=== PATIENT | male | born 1980 | race Caucasian/White ===

== ENCOUNTER 2016-12-17 14:59 | Emergency (ER) | payer SELFPAY ==
[~2016-12-17] VITALS: Ht 182.9 cm; Wt 88.3 kg
[~2016-12-17 14:59] MED LIST: AMOX500T PO; DICL75 PO; HYDR-3533 PO; PROVENTIL HFA INH; ROBA750T3 PO; Z.0.NO CURRENT MEDS
[2016-12-17 15:10] VITALS: BP 129/83; PULSE 88; RESP 16; TEMP 97.5; O2SAT 100
--- NOTE | 2016-12-17 15:20 | PD ---
HPI Chief Complaint: Musculoskeletal Complaint Time Seen by Provider: 15:20 Travel History International Travel<30 days: No Contact w/Intl Traveler<30days: No Traveled to known affect area: No History of Present Illness HPI 36-year-old male presents to the emergency Department with 2 complaints. Patient maintained complaining of his bilateral hand and wrist pain , swelling, and stiffness. 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 Patient was afraid to go to work today as this waste duster was just not up to snuff. He denies numbness or tingling. He denies upper arm or neck pain. There is no sign of cellulitis. She also has complained concerned about a cough that he has had for the past week, as he has HIV. Patient states no fever, chills, has chest congestion and productive cough of sputum. He denies upper respiratory symptoms such as headache, sore throat, ear pain, or difficulty swallowing. Has no sinus headache or postnasal drip. Patient is taking his current medications appropriately. Patient is allergic to Darvocet and Zithromax. PFSH Past Medical History Cardiovascular Problems: Yes (ENLARGED HEART) Diminished Hearing: No Past Surgical History Other Surgery: Yes (INGUINAL HERNIA REPAIR) Social History Alcohol Use: Yes (DRINKS ON ) Tobacco Use: Yes (1/2) Substance Use: No Allergies-Medications (Allergen,Severity, Reaction): Coded Allergies: Darvocet-N 100 (Verified Allergy, Mild, MAKES ME SICK, 12/17/16) Zithromax (Verified Allergy, Mild, DOES ALL KINDS OF THINGS TO ME, 12/17/16 ) Reported Meds & Prescriptions Reported Meds & Active Scripts Active Reported Hydrochlorothiazide 25 Mg Tab 25 Mg PO DAILY Amlodipine (Amlodipine Besylate) 10 Mg Tab 10 Mg PO DAILY Review of Systems Except as stated in HPI: all other systems reviewed are Neg General / Constitutional: No: Fever Eyes: No: Visual changes HENT: No: Headaches Cardiovascular: No: Chest Pain or Discomfort Respiratory: Positive: Cough, No: Shortness of Breath, Wheezing, Sneezing, Orthopnea, Hemoptysis Gastrointestinal: No: Abdominal Pain Genitourinary: No: Dysuria Musculoskeletal: Positive: Myalgias, Limited ROM, Pain, No: Arthralgias Skin: No Rash Neurologic: No: Weakness Psychiatric: No: Depression Endocrine: No: Polydipsia Hematologic/Lymphatic: No: Easy Bruising Physical Exam Narrative GENERAL: Patient appears distress. SKIN: Warm and dry. Normal color. Normal turgor. Multiple old abrasions to both hands without current signs of cellulitis or abscess. HEAD: Atraumatic. Normocephalic. EYES: Pupils equal and round. No scleral icterus. No injection or drainage. ENT: No nasal bleeding or discharge. Mucous membranes pink and moist. No sinus tenderness. Pharynx is clear without significant erythema or postnasal drip. TMs are clear bilaterally. NECK: Trachea midline. No bony tenderness or step-off. Supple nontender. CARDIOVASCULAR: Regular rate and rhythm. RESPIRATORY: No accessory muscle use. Coarse to auscultation. No significant wheezes, rales, or rhonchi. Breath sounds equal bilaterally. GASTROINTESTINAL: Abdomen soft, non-tender, nondistended. Hepatic and splenic margins not palpable. MUSCULOSKELETAL: Extremities without clubbing, cyanosis, or edema. No obvious deformities. Patient has generalized tenderness and stiffness of both hands with decreased waste duster strength secondary to pain bilaterally. Pain is generalized and not pinpoint. He has negative Tinel's at the wrist and elbows. Elbows and upper arms are normal. NEUROLOGICAL: Awake and alert. No obvious cranial nerve deficits. Motor grossly within normal limits. Five out of 5 muscle strength in the arms and legs. Normal speech. PSYCHIATRIC: Appropriate mood and affect; insight and judgment normal. Data Data Last Documented VS Vital Signs Date Time Temp Pulse Resp B/P Pulse Ox O2 Delivery O2 Flow Rate FiO2 12/17/16 15:10 97.5 88 16 129/83 100 Orders Prednisone (Deltasone) (12/17/16 15:30) Sulfamet-Trimeth Ds 800-160 Mg (Bactrim (12/17/16 15:30) MDM Medical Decision Making Medical Screen Exam Complete: Yes Emergency Medical Condition: Yes Differential Diagnosis Bilateral tenosynovitis of the arms. Overuse injury. Bronchitis. Narrative Course Patient is medically stable at time of exam. Radiographic imaging is not felt warranted for either problem. Patient is given prednisone 60 mg by mouth now as well as Bactrim DS by mouth 1. Patient be continued on prednisone 20 mg twice a day 7 days. Patient is continued on Bactrim DS twice a day 7 days. Patient is started on gabapentin 100 mg twice a day #60. Patient is to follow-up with his primary care physician as scheduled or sooner as needed. Diagnosis Primary Impression: Tenosynovitis of hand Additional Impressions: Tenosynovitis of forearm Bronchitis Referrals: Primary Care Physician Patient Instructions: General Instructions, Upper Extremity Tenosynovitis (DC) Departure Forms: Work Release Enter return to work date: December 19, 2016 Additional Instructions: Patient is medically stable at time of exam. Radiographic imaging is not felt warranted for either problem. Patient is given prednisone 60 mg by mouth now as well as Bactrim DS by mouth 1. Patient be continued on prednisone 20 mg twice a day 7 days. Patient is continued on Bactrim DS twice a day 7 days. Patient is started on gabapentin 100 mg twice a day #60. Patient is to follow-up with his primary care physician as scheduled or sooner as needed. Med/Other Pt SpecificInfo: Prescription(s) given Disposition: 01 DISCHARGE HOME Condition: Stable Colin Patricio December 17, 2016 15:20
[2016-12-17] MEDS ORDERED: predniSONE 20 MG TAB PO ONE (15:30)
[2016-12-17] MEDS ORDERED: SULFAMETHOXAZOLE-TRIMETHOPRIM DS 800-160 MG TAB PO ONE (15:30)
[2016-12-17] MEDS ORDERED: HYDR25TA5 PO (15:33)
[2016-12-17] MEDS ORDERED: AMLO10TA2 PO (15:33)
[2016-12-17] MEDS ORDERED: GABA100C4 PO (15:49)
[2016-12-17] MEDS ORDERED: PRED20 PO (15:49)
[2016-12-17] MEDS ORDERED: BACT800T5 PO (15:49)
== END 2016-12-17 16:10 | disposition home or self-care (01) ==
LOC: PHEFT 14:59
DX: M65.9 Synovitis and tenosynovitis, unspecified (principal); J40 Bronchitis, not specified as acute or chronic; M79.641 Pain in right hand; M79.642 Pain in left hand; F17.210 Nicotine dependence, cigarettes, uncomplicated
CPT/HCPCS: 99283; J7512

== ENCOUNTER 2017-01-08 20:11 | Emergency (ER) | payer SELFPAY ==
[~2017-01-08] VITALS: Ht 182.9 cm; Wt 92.0 kg
[~2017-01-08 20:11] MED LIST changes: +AMLO10TA2 PO; -AMOX500T PO; +BACT800T5 PO; -DICL75 PO; +GABA100C4 PO; -HYDR-3533 PO; +HYDR25TA5 PO; +PRED20 PO; -PROVENTIL HFA INH; -ROBA750T3 PO; -Z.0.NO CURRENT MEDS
[2017-01-08 20:17] VITALS: BP 126/78; PULSE 93; RESP 16; TEMP 97.9; O2SAT 98
[2017-01-08] MEDS ORDERED: HIV MEDICATION (20:30)
--- NOTE | 2017-01-08 21:13 | RADHPO ---
EXAM DATE/TIME: 01/08/2017 20:57 [facility] COMPARISON: No previous studies available for comparison. INDICATIONS : Left shoulder pain. MEDICAL HISTORY : None. SURGICAL HISTORY : None. ENCOUNTER: Initial ACUITY: 2 days PAIN SCORE: 4/10 LOCATION: Left shoulder. FINDINGS: Multiple view examination of the left shoulder demonstrates no evidence of fracture or dislocation. The glenohumeral and acromioclavicular joints are maintained. There is normal range of motion betwee n internal and external rotation. Bony mineralization is normal. CONCLUSION: No acute fracture. Tong Ch MD on January 08, 2017 at 21:11 Board Certified Radiologist. This report was verified electronically.
[2017-01-08] MEDS ORDERED: IBUP800T23 PO (21:23)
--- NOTE | 2017-01-08 21:23 | PD ---
HPI Chief Complaint: Injury Time Seen by Provider: 20:30 Travel History International Travel<30 days: No Contact w/Intl Traveler<30days: No Traveled to known affect area: No History of Present Illness HPI 36-year-old male presents emergency department for evaluation of left shoulder pain. Patient reports the left shoulder has been painful for greater than 1 month but today while moving some furniture he felt a sharp pain and a pop. Denies numbness or tingling in the extremity. He has mild decreased range of motion pain with abduction. No deformity/step-off noted. PFSH Past Medical History Medical History: Denies Significant Hx Cardiovascular Problems: Yes (ENLARGED HEART) Diminished Hearing: No Hypertension: Yes Past Surgical History Other Surgery: Yes (INGUINAL HERNIA REPAIR) Social History Alcohol Use: Yes (DRINKS ON ) Tobacco Use: Yes (08/08) Substance Use: No Allergies-Medications (Allergen,Severity, Reaction): Coded Allergies: Darvocet-N 100 (Verified Allergy, Mild, MAKES ME SICK, 01/08/17) Zithromax (Verified Allergy, Mild, DOES ALL KINDS OF THINGS TO ME, 01/08/17) Reported Meds & Prescriptions Reported Meds & Active Scripts Active Ibuprofen 800 Mg Tab 800 Mg PO Q8H PRN Gabapentin 100 Mg Cap 100 Mg PO BID Reported [Hiv Medication] Hydrochlorothiazide 25 Mg Tab 25 Mg PO DAILY Amlodipine (Amlodipine Besylate) 10 Mg Tab 10 Mg PO DAILY Review of Systems Except as stated in HPI: all other systems reviewed are Neg Physical Exam Narrative GENERAL: Well-nourished, well-developed patient. SKIN: Focused skin assessment warm/dry. HEAD: Normocephalic. EYES: No scleral icterus. No injection or drainage. NECK: Supple, trachea midline. No JVD or lymphadenopathy. CARDIOVASCULAR: Regular rate and rhythm without murmurs, gallops, or rubs. RESPIRATORY: Breath sounds equal bilaterally. No accessory muscle use. GASTROINTESTINAL: Abdomen soft, non-tender, nondistended. MUSCULOSKELETAL: No cyanosis, or edema. Left shoulder tenderness to palpation. No deformity/step-off. 2+ distal pulses. Normal sensation and 2 point discrimination. Pain with abduction. BACK: Nontender without obvious deformity. No CVA tenderness. Data Data Last Documented VS Vital Signs Date Time Temp Pulse Resp B/P Pulse Ox O2 Delivery O2 Flow Rate FiO2 01/08/17 20:17 97.9 93 16 126/78 98 Orders Shoulder, Complete (>2vws) (01/08/17 ) MDM Medical Decision Making Medical Screen Exam Complete: Yes Emergency Medical Condition: Yes Differential Diagnosis Rotator cuff injury, shoulder strain, tendinitis Narrative Course 36-year-old male presents emergency department for evaluation of left shoulder pain. Patient reports the left shoulder has been painful for greater than 1 month but today while moving some furniture he felt a sharp pain and a pop. He has mild decreased range of motion pain with abduction. No deformity. Extremities neurovascularly intact. X-ray show no fracture dislocation. Patient will be discharged home with her sling, NSAIDs, instructions for rest. Follow-up with primary doctor. Diagnosis Primary Impression: Shoulder injury Qualified Code: S49.92XA - Shoulder injury, left, initial encounter Referrals: [facility] Primary Care Physician Scripts Ibuprofen 800 Mg [id number] Mg PO Q8H PRN (Pain/Inflammation) #30 TAB Prov:Zulema Sierra 01/08/17 Disposition: 01 DISCHARGE HOME Condition: Stable Zulema Sierra Jan 08, 2017 21:23
[2017-01-08] MEDS ORDERED: KETOROLAC TROMETHAMINE 60 MG/2 ML (IM) VIAL IM ONE (21:30)
== END 2017-01-08 21:43 | disposition home or self-care (01) ==
LOC: PHEFT 20:11
DX: S49.92XA Unspecified injury of left shoulder and upper arm, initial encounter (principal); I10 Essential (primary) hypertension; Z86.79 Personal history of other diseases of the circulatory system; X50.0XXA Overexertion from strenuous movement or load, initial encounter
CPT/HCPCS: 73030; 96372; 99284; J1885

== ENCOUNTER 2017-02-16 16:25 | Emergency (ER) | payer SELFPAY ==
[~2017-02-16] VITALS: Ht 182.9 cm; Wt 87.0 kg
[~2017-02-16 16:25] MED LIST changes: -BACT800T5 PO; +HIV MEDICATION; +IBUP800T23 PO; -PRED20 PO
[2017-02-16 16:33] VITALS: BP 130/89; RESP 16; TEMP 97.6; O2SAT 97
[2017-02-16] MEDS ORDERED: MUPI2%T TOPICAL (17:00)
[2017-02-16] MEDS ORDERED: BACT800T5 PO (17:00)
--- NOTE | 2017-02-16 17:06 | PD ---
HPI Chief Complaint: Skin Problem Time Seen by Provider: 17:02 Travel History International Travel<30 days: No Contact w/Intl Traveler<30days: No Traveled to known affect area: No History of Present Illness HPI 36-year-old male that presents to the ED for evaluation of wounds to the back of the neck. 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 Per patient he has been cleaning them and keeping them covered but today he started feeling like there is something in the back of his leg. Per patient he feels like "there are worms " . Per patient is slightly painful. He has not done anything for him. He comes here to get evaluated for this. History of HIV. No chest pain or shortness of breath. Denies any fevers chills or sweats. PFSH Past Medical History Cardiovascular Problems: Yes (ENLARGED HEART) Diminished Hearing: No Hypertension: Yes Past Surgical History Other Surgery: Yes (INGUINAL HERNIA REPAIR) Social History Alcohol Use: Yes (DRINKS ON ) Tobacco Use: Yes (1/2) Substance Use: No Allergies-Medications (Allergen,Severity, Reaction): Coded Allergies: Darvocet-N 100 (Verified Allergy, Mild, MAKES ME SICK, 01/08/17) Zithromax (Verified Allergy, Mild, DOES ALL KINDS OF THINGS TO ME, 01/08/17) Reported Meds & Prescriptions Reported Meds & Active Scripts Active Bactrim DS (Sulfamethoxazole-Trimethoprim) 800-160 Mg Tab 1 Tab PO BID 10 Days Bactroban Topical (Mupirocin) 22 Gm Cream 1 Applic TOPICAL TID Ibuprofen 800 Mg Tab 800 Mg PO Q8H PRN Gabapentin 100 Mg Cap 100 Mg PO BID Reported [Hiv Medication] Hydrochlorothiazide 25 Mg Tab 25 Mg PO DAILY Amlodipine (Amlodipine Besylate) 10 Mg Tab 10 Mg PO DAILY Review of Systems Except as stated in HPI: all other systems reviewed are Neg Physical Exam Narrative GENERAL: SKIN: Warm and dry. Patient has what appears to be healing ulcer-like wounds on the neck. 3 of them. I would less than half a centimeter. They do appear to have erythema and some purulence especially on the day or 1 which is about 1 cm. Patient does have erythema around the area. No obvious bony deformity noted. Patient does appear to have posterior-like lesions that appear to be folliculitis on the back of the neck as well. HEAD: Atraumatic. Normocephalic. EYES: Pupils equal and round. No scleral icterus. No injection or drainage. ENT: No nasal bleeding or discharge. Mucous membranes pink and moist. Tongue is midline. No uvula deviation. NECK: Trachea midline. No JVD. CARDIOVASCULAR: Regular rate and rhythm. RESPIRATORY: No accessory muscle use. Clear to auscultation. Breath sounds equal bilaterally. GASTROINTESTINAL: Abdomen soft, non-tender, nondistended. Hepatic and splenic margins not palpable. MUSCULOSKELETAL: Extremities without clubbing, cyanosis, or edema. No obvious deformities. NEUROLOGICAL: Awake and alert. No obvious cranial nerve deficits. Motor grossly within normal limits. Five out of 5 muscle strength in the arms and legs. Normal speech. PSYCHIATRIC: Appropriate mood and affect; insight and judgment normal. Data Data Last Documented VS Vital Signs Date Time Temp Pulse Resp B/P Pulse Ox O2 Delivery O2 Flow Rate FiO2 02/16/17 16:33 97.6 16 130/89 97 Room Air MDM Medical Decision Making Medical Screen Exam Complete: Yes Emergency Medical Condition: Yes Medical Record Reviewed: Yes Differential Diagnosis Staph infection versus wound infection versus cellulitis versus folliculitis Narrative Course 36-year-old male that presents to the ED for evaluation of wounds to his back of his neck. Patient was properly examined and was found to have signs and symptoms appear to be consistent with folliculitis likely infection of the wounds. Patient does work outside a lot and could be staph. We'll treat with Bactrim and Bactroban. I recommend ice or warm compresses. Keep areas cover. Follow with PCP. See ED worsening symptoms. Diagnosis Primary Impression: Wound infection Patient Instructions: General Instructions Additional Instructions: Take medication as prescribed. Keep areas covered. Ice or warm compresses. Motrin or Tylenol for pain. Recheck on Monday if not Better at all. See ED for worsening symptoms. Med/Other Pt SpecificInfo: Prescription(s) given, Wound Care Scripts Sulfamethoxazole-Trimethoprim (Bactrim DS)800-160 Mg Tab1 Tab PO BID 10 Days Ref 0 Prov:Claire Gambino DO 02/16/17 Mupirocin Topical (Bactroban Topical)22 Gm Cream1 Applic TOPICAL TID #1 TUBE Ref 0 Prov:Claire Gambino DO 02/16/17 Disposition: 01 DISCHARGE HOME Condition: Stable Giovanny Junior Feb 16, 2017 17:06
== END 2017-02-16 17:18 | disposition home or self-care (01) ==
LOC: PHEFT 16:25
DX: L08.9 Local infection of the skin and subcutaneous tissue, unspecified (principal)
CPT/HCPCS: 99284

== ENCOUNTER 2017-03-24 11:16 | Emergency (ER) | payer SELFPAY ==
[~2017-03-24] VITALS: Ht 182.9 cm; Wt 92.4 kg
[~2017-03-24 11:16] MED LIST changes: +BACT800T5 PO; +MUPI2%T TOPICAL
[2017-03-24 11:22] VITALS: BP 120/74; PULSE 86; RESP 15; TEMP 97.8; O2SAT 98
[2017-03-24] MEDS ORDERED: DARU1TAB2 PO (11:33)
--- NOTE | 2017-03-24 11:54 | PD ---
HPI Chief Complaint: Pain: Acute or Chronic Time Seen by Provider: 11:30 Travel History International Travel<30 days: No Contact w/Intl Traveler<30days: No Traveled to known affect area: No History of Present Illness HPI 36-year-old male with chief complaint of left rib pain 3 days. Patient reports while reaching overhead he felt a sharp pain and crack sensation within his left rib. He reports since that time he's had increasing pain that is worse with movement and inspiration. No alleviating factors. Pain severity / 10. He denies chest pain or shortness of breath. PFSH Past Medical History Cardiovascular Problems: Yes (ENLARGED HEART) Diminished Hearing: No Hypertension: Yes Immune Disorder: Yes (HIV+) Past Surgical History Other Surgery: Yes (INGUINAL HERNIA REPAIR) Social History Alcohol Use: Yes (DRINKS ON ) Tobacco Use: Yes (1/2PPD) Substance Use: No Allergies-Medications (Allergen,Severity, Reaction): Coded Allergies: acetaminophen (Unverified Allergy, Mild, MAKES ME SICK, 03/24/17) azithromycin (Unverified Allergy, Mild, DOES ALL KINDS OF THINGS TO ME, ) propoxyphene (Unverified Allergy, Mild, MAKES ME SICK, 03/24/17) Reported Meds & Prescriptions Reported Meds & Active Scripts Active Gabapentin 100 Mg Cap 100 Mg PO BID Reported Prezcobix (Darunavir-Cobicistat) 800-150 Mg Tab 1 Tab PO DAILY Hydrochlorothiazide 25 Mg Tab 25 Mg PO DAILY Amlodipine (Amlodipine Besylate) 10 Mg Tab 10 Mg PO DAILY Review of Systems Except as stated in HPI: all other systems reviewed are Neg General / Constitutional: No: Fever Eyes: No: Visual changes HENT: No: Headaches Cardiovascular: No: Chest Pain or Discomfort Respiratory: No: Shortness of Breath Gastrointestinal: No: Abdominal Pain Genitourinary: No: Dysuria Physical Exam Narrative GENERAL: Well-nourished, well-developed patient. SKIN: Focused skin assessment warm/dry. HEAD: Normocephalic. EYES: No scleral icterus. No injection or drainage. NECK: Supple, trachea midline. No JVD or lymphadenopathy. CARDIOVASCULAR: Regular rate and rhythm without murmurs, gallops, or rubs. CHEST: Point tenderness to the left posterior/lateral ribs. No crepitus. RESPIRATORY: Breath sounds equal bilaterally. No accessory muscle use. GASTROINTESTINAL: Abdomen soft, non-tender, nondistended. BACK: Nontender without obvious deformity. No CVA tenderness. Data Data Last Documented VS Vital Signs Date Time Temp Pulse Resp B/P Pulse Ox O2 Delivery O2 Flow Rate FiO2 03/24/17 11:22 97.8 86 15 120/74 98 Orders Ribs, Uni (W/Exp Cxr-Min 3vw) (03/24/17 ) MDM Medical Decision Making Medical Screen Exam Complete: Yes Emergency Medical Condition: Yes Differential Diagnosis Rib fracture, thoracic muscle strain, pneumothorax Narrative Course 36-year-old male with chief complaint left posterior lateral rib pain and treated. Patient has point tenderness to the posterior lateral left ribs. Lung sounds are clear. X-ray pending Chest/rib x-ray negative for acute fracture or pneumothorax. Patient will be treated for thoracic muscle strain. He'll be given a shot of Toradol instructed to take high-dose NSAIDs as needed for pain. Return precautions discussed. Patient verbalizes understanding and agrees to plan. Diagnosis Primary Impression: Chest wall muscle strain Qualified Code: S29.011A - Muscle strain of chest wall, initial encounter Referrals: [facility] Additional Instructions: Take [id number] Motrin [id number] milligrams every 6-8 hours as needed for pain. Avoid heavy lifting or strenuous activity. Follow-up with her primary care doctor. Return to emergency department if he developed new or worsening symptoms. Disposition: 01 DISCHARGE HOME Condition: Stable Zulema Sierra Mar 24, 2017 11:54
--- NOTE | 2017-03-24 12:14 | RADRPT ---
EXAM DATE/TIME: 03/24/2017 11:44 [facility] COMPARISON: No previous studies available for comparison. INDICATIONS : Left rib pain after straining back at work MEDICAL HISTORY : None. SURGICAL HISTORY : None. ENCOUNTER: Initial ACUITY: 1 day PAIN SCORE: 10/10 LOCATION: Left posterior low ribs FINDINGS: Multiple views of the left ribs were performed. There is no evidence of displaced fracture. No dest ructive lesions or areas of periosteal thickening are seen. Expiratory view of the chest is negative for pneumothorax. The mediastinal structures are midline. Old rib fractures seen at T10. CONCLUSION: Negative for pneumothorax. Negative for acute displaced rib fracture. Old left rib 10 fracture. Rubens Fernandez MD FACR on March 24, 2017 at 12:11 Board Certified Radiologist. This report was verified electronically.
[2017-03-24] MEDS: KETOROLAC TROMETHAMINE 60 MG/2 ML (IM) VIAL IM ONE ×2 (12:27→12:28)
== END 2017-03-24 12:36 | disposition home or self-care (01) ==
LOC: PHEFT 11:16
DX: S29.011A Strain of muscle and tendon of front wall of thorax, initial encounter (principal); I10 Essential (primary) hypertension; F17.200 Nicotine dependence, unspecified, uncomplicated; Z21 Asymptomatic human immunodeficiency virus [HIV] infection status; Z86.79 Personal history of other diseases of the circulatory system; X58.XXXA Exposure to other specified factors, initial encounter
CPT/HCPCS: 71101; 99283; J1885

== ENCOUNTER 2017-05-12 08:59 | Emergency (ER) | payer SELFPAY ==
[~2017-05-12] VITALS: Ht 182.9 cm; Wt 94.0 kg
[~2017-05-12 08:59] MED LIST changes: -BACT800T5 PO; +DARU1TAB2 PO; -HIV MEDICATION; -IBUP800T23 PO; -MUPI2%T TOPICAL
[2017-05-12 09:05] VITALS: BP 135/89; PULSE 73; RESP 18; TEMP 97.8; O2SAT 99
--- NOTE | 2017-05-12 09:18 | PD ---
HPI Chief Complaint: chest pain Time Seen by Provider: 09:10 Travel History International Travel<30 days: No Contact w/Intl Traveler<30days: No History of Present Illness HPI patient is a 37-year-old male with a history of HIV and cardiomyopathy which she says is secondary to antiretroviral therapy presents emergency department for evaluation of chest pain the middle of his chest radiation to his jaw coupled with shortness of breath. Patient states he took some nitroglycerin at home and made him feel better. He also states he missed his calcium channel torrie doses morning and thinks this might play a part of it. He is never had a heart attack has had a stress test which was negative but states some years ago. He also states that his mother had a stroke in her 30s. He also had some mild nausea without vomiting this morning. States symptoms have resolved on arrival. PFSH Past Medical History Cardiovascular Problems: Yes (ENLARGED HEART) Diminished Hearing: No Hypertension: Yes Immune Disorder: Yes (HIV+) Past Surgical History Other Surgery: Yes (INGUINAL HERNIA REPAIR) Social History Alcohol Use: Yes (DRINKS ON ) Tobacco Use: Yes (1/2PPD) Substance Use: No Allergies-Medications (Allergen,Severity, Reaction): Coded Allergies: acetaminophen (Unverified Allergy, Mild, MAKES ME SICK, 03/24/17) azithromycin (Unverified Allergy, Mild, DOES ALL KINDS OF THINGS TO ME, ) propoxyphene (Unverified Allergy, Mild, MAKES ME SICK, 03/24/17) Reported Meds & Prescriptions Reported Meds & Active Scripts Active Nystatin Topical (Nystatin) 100,000 unit/gm Cream 1 Applic TOPICAL Q6HR Gabapentin 100 Mg Cap 100 Mg PO BID Reported [vicosby] 1 Tab PO DAILY Prezcobix (Darunavir-Cobicistat) 800-150 Mg Tab 1 Tab PO DAILY Hydrochlorothiazide 25 Mg Tab 25 Mg PO DAILY Amlodipine (Amlodipine Besylate) 10 Mg Tab 10 Mg PO DAILY Review of Systems Except as stated in HPI: all other systems reviewed are Neg Physical Exam Narrative GENERAL: Well-developed well-nourished no obvious distress SKIN: Focused skin assessment warm/dry. HEAD: Atraumatic. Normocephalic. EYES: Pupils equal and round. No scleral icterus. No injection or drainage. ENT: No nasal bleeding or discharge. Mucous membranes pink and moist. NECK: Trachea midline. No JVD. CARDIOVASCULAR: Regular rate and rhythm. No murmur appreciated. RESPIRATORY: No accessory muscle use. Clear to auscultation. Breath sounds equal bilaterally. GASTROINTESTINAL: Abdomen soft, non-tender, nondistended. Hepatic and splenic margins not palpable. MUSCULOSKELETAL: No obvious deformities. No clubbing. No cyanosis. No edema. NEUROLOGICAL: Awake and alert. No obvious cranial nerve deficits. Motor grossly within normal limits. Normal speech. PSYCHIATRIC: Appropriate mood and affect; insight and judgment normal. Data Data Last Documented VS Vital Signs Date Time Temp Pulse Resp B/P (MAP) Pulse Ox O2 Delivery O2 Flow Rate FiO2 05/12/17 11:42 05/12/17 11:07 78 16 98 Room Air 05/12/17 09:05 97.8 Orders Orders Electrocardiogram (05/12/17:17) Ckmb (Isoenzyme) Profile (05/12/17:17) Complete Blood Count With Diff (05/12/17:) Comprehensive Metabolic Panel (05/12/17:17) Magnesium (Mg) (05/12/17:17) Prothrombin Time / Inr (Pt) (05/12/17:17) Act Partial Throm Time (Ptt) (05/12/17:17) Troponin I (05/12/17:17) Chest, Single Ap (05/12/17:17) Ecg Monitoring (05/12/17:17) Iv Access Insert/Monitor (05/12/17:17) Oximetry (05/12/17:17) Oxygen Administration (05/12/17:17) Aspirin Chew (Aspirin Chew) (05/12/17 09:30) Sodium Chloride 0.9% Flush (Ns Flush) (05/12/17 09:30) Nitroglycerin Sl (Nitrostat Sl) (05/12/17 09:30) Labs Laboratory Tests Test 05/12/17 09:05 White Blood Count 6.4 TH/MM3 Red Blood Count 4.72 MIL/MM3 Hemoglobin 14.5 GM/DL Hematocrit 43.0 % Mean Corpuscular Volume 91.1 FL Mean Corpuscular Hemoglobin 30.6 PG Mean Corpuscular Hemoglobin Concent 33.6 % Red Cell Distribution Width 12.4 % Platelet Count 288 TH/MM3 Mean Platelet Volume 7.6 FL Neutrophils (%) (Auto) 48.1 % Lymphocytes (%) (Auto) 38.4 % Monocytes (%) (Auto) 8.9 % Eosinophils (%) (Auto) 3.9 % Basophils (%) (Auto) 0.7 % Neutrophils # (Auto) 3.0 TH/MM3 Lymphocytes # (Auto) 2.5 TH/MM3 Monocytes # (Auto) 0.6 TH/MM3 Eosinophils # (Auto) 0.3 TH/MM3 Basophils # (Auto) 0.0 TH/MM3 CBC Comment DIFF FINAL Differential Comment Prothrombin Time 9.8 SEC Prothromb Time International Ratio 0.9 RATIO Activated Partial Thromboplast Time 26.4 SEC Blood Urea Nitrogen 15 MG/DL Creatinine 1.00 MG/DL Random Glucose 76 MG/DL Total Protein 8.3 GM/DL Albumin 4.0 GM/DL Calcium Level 9.0 MG/DL Magnesium Level 2.4 MG/DL Alkaline Phosphatase 91 U/L Aspartate Amino Transf (AST/SGOT) 17 U/L Alanine Aminotransferase (ALT/SGPT) 33 U/L Total Bilirubin 0.2 MG/DL Sodium Level 139 MEQ/L Potassium Level 3.4 MEQ/L Chloride Level 97 MEQ/L Carbon Dioxide Level 33.9 MEQ/L Anion Gap 8 MEQ/L Estimat Glomerular Filtration Rate 85 ML/MIN Total Creatine Kinase 71 U/L Troponin I LESS THAN 0.02 NG/ML MDM Medical Decision Making Medical Screen Exam Complete: Yes Emergency Medical Condition: Yes Differential Diagnosis ACS seems unlikely, AMI, pneumonia, chest wall pain. Narrative Course Patient roomed in emergency department, EKG shows sinus rhythm without any concerning ST segment changes. Troponin negative. Patient has been having pain for 2 hours. At one point he did have the pain started to return in the emergency department was given nitroglycerin and it resolved. A chest x-ray was negative. Discussed with the patient that while he is fairly young family history does give cause for concern. He is also a smoker. Was suggested to him that he stay in the hospital to have a stress test done but he would rather follow-up as an outpatient. 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 I discussed with him that there is risk of major adverse cardiac event should he leave the hospital he verbalized understanding and agreement. His given a referral to Dr. Crespo. I discussed with him that if his pain should return he should return to the emergency department. Diagnosis Primary Impression: Chest pain Qualified Codes: R07.9 - Chest pain, unspecified Referrals: Miguel Angel Rhodes MD Scripts Nystatin Topical (Nystatin Topical) 100,000 unit/gm Cream 1 APPLIC TOPICAL Q6HR for Infection, #30 GM 0 Refills Prov: Rg Saeed MD 05/12/17 Disposition: 01 DISCHARGE HOME Condition: Stable Rg Saeed MD May 12, 2017 09:17
[2017-05-12] MEDS ORDERED: NITROGLYCERIN 0.4 MG SL 25 TABS/BTL SL ONE (09:30)
[2017-05-12] MEDS ORDERED: SODIUM CHLORIDE 0.9% FLUSH 10 ML FLUSH IVF PRN (09:30)
[2017-05-12] MEDS ORDERED: ASPIRIN 81 MG CHEW TAB PO ONE (09:30)
--- NOTE | 2017-05-12 09:35 | RADRPT ---
EXAM DATE/TIME: 05/12/2017 09:25 [facility] COMPARISON: No previous studies available for comparison. INDICATIONS : Chest pain, left facial numbness, left arm burning. MEDICAL HISTORY : Hypertension. Enlarged heart. SURGICAL HISTORY : Inguinal hernia repair. ENCOUNTER: Initial ACUITY: 1 day PAIN SCORE: 6/10 LOCATION: chest FINDINGS: A single view of the chest demonstrates the lungs to be symmetrically aerated without evidence of mas s, infiltrate or effusion. The cardiomediastinal contours are unremarkable. Osseous structures are intact. CONCLUSION: 1. No acute cardiopulmonary disease. Ty Mcdonald MD on May 12, 2017 at 9:33 Board Certified Radiologist. This report was verified electronically.
[2017-05-12 09:54] LABS: BASOPHIL % 0.7 % (0.0-2.0); EOSINOPHIL # 0.3 TH/MM3 (0-0.4); EOSINOPHIL % 3.9 % (0.0-4.0); HEMO FLAGS DIFF FINAL; LYMPH % 38.4 % (9.0-44.0); LYMPHOCYTE # 2.5 TH/MM3 (1.0-4.8); MEAN CELL VOLUME 91.1 FL (80.0-100.0); MEAN CORPUSCULAR HEMOGLOBIN 30.6 PG (27.0-34.0); MEAN CORPUSCULAR HGB CONC 33.6 % (32.0-36.0); MONO % 8.9 % (0.0-8.0); NEUT % 48.1 % (16.0-70.0); PLATELET COUNT 288 TH/MM3 (150-450); RED BLOOD COUNT 4.72 MIL/MM3 (4.50-5.90); RED CELL DISTRIBUTION WIDTH 12.4 % (11.6-17.2); WHITE BLOOD COUNT 6.4 TH/MM3 (4.0-11.0)
[2017-05-12 10:03] VITALS: BP 126/65; PULSE 89; RESP 18; O2SAT 98
[2017-05-12 10:08] LABS: CHLORIDE 97 MEQ/L (98-107); POTASSIUM 3.4 MEQ/L (3.5-5.1); SODIUM (NA) 139 MEQ/L (136-145)
[2017-05-12] MEDS ORDERED: [UNRECOGNIZED DRUG - OTHER] PO (10:08)
[2017-05-12 10:11] LABS: ANION GAP 8 MEQ/L (5-15); APTT (PATIENT) 26.4 SEC (24.3-30.1); BICARBONATE 33.9 MEQ/L (21.0-32.0); BLOOD UREA NITROGEN 15 MG/DL (7-18); INTERNATIONAL NORMALIZED RATIO 0.9 RATIO; MAGNESIUM 2.4 MG/DL (1.5-2.5); PROTHROMBIN TIME - PATIENT 9.8 SEC (9.8-11.6)
[2017-05-12 10:14] LABS: ALT (GPT) 33 U/L (12-78); AST (GOT) 17 U/L (15-37); GLOMERULAR FILTRATION RATE 85 ML/MIN (>89)
[2017-05-12 10:15] LABS: TOTAL BILIRUBIN ADULT 0.2 MG/DL (0.2-1.0)
[2017-05-12 10:17] LABS: ALKALINE PHOSPHATASE 91 U/L (45-117)
[2017-05-12 10:22] LABS: CREATINE KINASE 71 U/L (39-308)
[2017-05-12 11:07] VITALS: BP 122/64; PULSE 78; RESP 16; O2SAT 98
[2017-05-12] MEDS ORDERED: NYST15T TOPICAL (11:27)
--- NOTE | 2017-05-13 05:25 | EKG ---
Date Performed: 05/12/2017 Time Performed: 09:03:06 PTAGE: 37 years EKG: Sinus rhythm NORMAL ECG NO PREVIOUS TRACING DOCTOR: Miguel Angel Rhodes Interpretating Date/Time 05/13/2017 05:16:15
== END 2017-05-12 11:42 | disposition home or self-care (01) ==
LOC: PHED 08:59
DX: R07.9 Chest pain, unspecified (principal); R06.02 Shortness of breath; R11.0 Nausea; I10 Essential (primary) hypertension; F17.200 Nicotine dependence, unspecified, uncomplicated; Z21 Asymptomatic human immunodeficiency virus [HIV] infection status; Z79.899 Other long term (current) drug therapy; Z88.8 Allergy status to other drugs, medicaments and biological substances
CPT/HCPCS: 71010; 80053; 82550; 83735; 84484; 85025; 85610; 85730; 93005

== ENCOUNTER 2017-05-12 16:21 | Observation (INO) | payer SELFPAY ==
[~2017-05-12] VITALS: Ht 182.9 cm; Wt 94.0 kg
[~2017-05-12 16:21] MED LIST changes: +NYST15T TOPICAL; +[UNRECOGNIZED DRUG - OTHER] PO
[2017-05-12 16:28] VITALS: BP 141/79; PULSE 96; RESP 16; TEMP 98.6; O2SAT 98
--- NOTE | 2017-05-12 17:28 | PD ---
HPI Chief Complaint: Chest Pain Time Seen by Provider: 16:27 Travel History International Travel<30 days: No Contact w/Intl Traveler<30days: No Traveled to known affect area: No History of Present Illness HPI Patient is a 37-year-old male seen by me earlier today, see my previous notes for further history. Patient left to go home after discussion of risks benefits competitions of missing blockage in his heart. 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 He states he came back to be admitted for the stress testing. [facility] Past Medical History Cardiovascular Problems: Yes (htn) Diminished Hearing: No Hypertension: Yes Immune Disorder: Yes (HIV+) Past Surgical History Other Surgery: Yes (INGUINAL HERNIA REPAIR) Social History Alcohol Use: Yes (DRINKS ON PAYDAYS) Tobacco Use: Yes (1/2PPD) Substance Use: No Allergies-Medications (Allergen,Severity, Reaction): Coded Allergies: acetaminophen (Unverified Allergy, Mild, MAKES ME SICK, 03/24/17) azithromycin (Unverified Allergy, Mild, DOES ALL KINDS OF THINGS TO ME, ) propoxyphene (Unverified Allergy, Mild, MAKES ME SICK, 03/24/17) Reported Meds & Prescriptions Reported Meds & Active Scripts Active Gabapentin 100 Mg Cap 100 Mg PO BID Reported Prezcobix (Darunavir-Cobicistat) 800-150 Mg Tab 1 Tab PO DAILY Hydrochlorothiazide 25 Mg Tab 25 Mg PO DAILY Amlodipine (Amlodipine Besylate) 10 Mg Tab 10 Mg PO DAILY Review of Systems Except as stated in HPI: all other systems reviewed are Neg Physical Exam Narrative GENERAL: Well-developed well-nourishedin no obvious distress, smells of cigarette smoke. SKIN: Focused skin assessment warm/dry. HEAD: Atraumatic. Normocephalic. EYES: Pupils equal and round. No scleral icterus. No injection or drainage. ENT: No nasal bleeding or discharge. Mucous membranes pink and moist. NECK: Trachea midline. No JVD. CARDIOVASCULAR: Regular rate and rhythm. No murmur appreciated. RESPIRATORY: No accessory muscle use. Clear to auscultation. Breath sounds equal bilaterally. GASTROINTESTINAL: Abdomen soft, non-tender, nondistended. Hepatic and splenic margins not palpable. MUSCULOSKELETAL: No obvious deformities. No clubbing. No cyanosis. No edema. NEUROLOGICAL: Awake and alert. No obvious cranial nerve deficits. Motor grossly within normal limits. Normal speech. PSYCHIATRIC: Appropriate mood and affect; insight and judgment normal. Data Data Last Documented VS Vital Signs Date Time Temp Pulse Resp B/P (MAP) Pulse Ox O2 Delivery O2 Flow Rate FiO2 05/12/17 16:28 98.6 96 16 141/79 (99) 98 Orders Orders Troponin I (05/12/17 16:27) Admit Order (Ed Use Only) (05/12/17 ) Labs Laboratory Tests Test 05/12/17 16:42 Troponin I LESS THAN 0.02 NG/ML MDM Medical Decision Making Medical Screen Exam Complete: Yes Emergency Medical Condition: Yes Differential Diagnosis ACS, [place], chest wall pain. Narrative Course Repeat troponin and EKG at this time shows no change from previous and troponin undetectable. As per previous plan Will admit to the patient to the hospital for consideration of stress testing given the patient's family history of cerebrovascular disease (mother in early 30s) Diagnosis Primary Impression: Chest pain Admitting Information Admitting Physician Requests: Observation Condition: Stable Rg Saeed MD May 12, 2017 17:28
[2017-05-12 18:08] VITALS: BP 125/75; PULSE 87; RESP 17; O2SAT 97
[2017-05-12] MEDS ORDERED: ONDANSETRON HCL 4 MG/2 ML VIAL IV PUSH PRN (18:30)
[2017-05-12] MEDS ORDERED: SODIUM CHLORIDE 0.9% FLUSH 10 ML FLUSH IV FLUSH PRN (18:30)
--- NOTE | 2017-05-12 18:44 | HHI.HP ---
HPI Primary Care Physician No Primary Care Physician Admission Diagnosis Chest Pain Diagnoses: Chief Complaint: Chest pain History of Present Illness This patient's 37-year-old gentleman who was having intermittent severe chest pain for the last several days. Pain was relatively severe and occurred with exertion. 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 He notes no fevers or chills. No recent trauma. He has a history of hypertension and says he has cardiomyopathy which was found in a cardiac evaluation in the hospital in [place]. He has been on Norvasc and hydrochlorothiazide. He was started on the Norvasc and had some edema and then hydrochlorothiazide was started. The patient says that he has to drink quite a bit of caffeine to keep going and has increasing dyspnea with his daily activities. He notes that his blood pressure has been up lately and he feels better when he has cool air from us pain. The chest pain at this time is resolved. He did come to the emergency room earlier and was recommended to stay in the cardiac chest pain center however he did leave to take care of business and returned back to the emergency room. Labs aren't available from both visits. On my review his EKG shows normal sinus rhythm without acute segment changes consistent with ischemia. His cardiac enzymes are negative. A chest x-ray is unremarkable for acute cardiopulmonary illnesses as well. Patient is recommended for stress test and he is agreeable. Review of Systems Constitutional: DENIES: Diaphoretic episodes, Fatigue, Fever, Weight gain, Weight loss, Chills, Dizziness, Change in appetite, Night Sweats Endocrine: DENIES: Heat/cold intolerance, Polydipsia, Polyuria, Polyphagia Eyes: DENIES: Blurred vision, Diplopia, Eye inflammation, Eye pain, Vision loss , Photosensitivity, Double Vision Ears, nose, mouth, throat: DENIES: Tinnitus, Hearing loss, Vertigo, Nasal discharge, Oral lesions, Throat pain, Hoarseness, Ear Pain, Running Nose, Epistaxis, Sinus Pain, Toothache, Odynophagia Respiratory: DENIES: Apneas, Cough, Snoring, Wheezing, Hemoptysis, Sputum production, Shortness of breath Cardiovascular: COMPLAINS OF: Chest pain, Palpitations, Dyspnea on Exertion, Lower Extremity Edema Gastrointestinal: DENIES: Abdominal pain, Black stools, Bloody stools, Constipation, Diarrhea, Nausea, Vomiting, Difficulty Swallowing, Anorexia Genitourinary: DENIES: Sexual dysfunction, Urinary frequency, Urinary incontinence, Urgency, Hematuria, Dysuria, Nocturia, Penile Discharge, Testicular Pain, Testicular Swelling Musculoskeletal: DENIES: Joint pain, Muscle aches, Stiffness, Joint Swelling, Back pain, Neck pain Integumentary: DENIES: Abnormal pigmentation, Nail changes, Pruritus, Rash Hematologic/lymphatic: DENIES: Bruising, Lymphadenopathy Immunologic/allergic: DENIES: Eczema, Urticaria Neurologic: DENIES: Abnormal gait, Headache, Localized weakness, Paresthesias, Seizures, Speech Problems, Tremor, Poor Balance Psychiatric: DENIES: Anxiety, Confusion, Mood changes, Depression, Hallucinations, Agitation, Suicidal Ideation, Homicidal Ideation, Delusions Except as stated in HPI: all other systems reviewed are Neg Past Family Social History Past Medical History HIV Hypertension Past Surgical History Jaw surgery Reported Medications Reviewed in the EMR Allergies: Coded Allergies: acetaminophen (Unverified Allergy, Mild, MAKES ME SICK, 03/24/17) azithromycin (Unverified Allergy, Mild, DOES ALL KINDS OF THINGS TO ME, ) propoxyphene (Unverified Allergy, Mild, MAKES ME SICK, 03/24/17) Active Ordered Medications Reviewed in the EMR Family History Mother had a stroke at 30 Father is alive and healthy Social History 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 SKIN: No rashes, ecchymoses or lesions. Cool and dry. HEAD: Atraumatic. Normocephalic. No temporal or scalp tenderness. EYES: Pupils equal round and reactive. Extraocular motions intact. No scleral icterus. No injection or drainage. ENT: Nose without bleeding, purulent drainage or septal hematoma. Throat without erythema, tonsillar hypertrophy or exudate. Uvula midline. Airway patent. NECK: Trachea midline. No JVD or lymphadenopathy. Supple, nontender, no meningeal signs. CARDIOVASCULAR: Regular rate and rhythm without murmurs, gallops, or rubs. RESPIRATORY: Clear to auscultation. Breath sounds equal bilaterally. No wheezes , rales, or rhonchi. GASTROINTESTINAL: Abdomen soft, non-tender, nondistended. No hepato-splenomegaly , or palpable masses. No guarding. MUSCULOSKELETAL: Extremities without clubbing, cyanosis, but there is trace edema. No joint tenderness, effusion, or edema noted. No calf tenderness. Negative Homans sign bilaterally. NEUROLOGICAL: Awake and alert. Cranial nerves II through XII intact. Motor and sensory grossly within normal limits. Five out of 5 muscle strength in all muscle groups. Normal speech. Laboratory Laboratory Tests Test 05/12/17 16:42 Troponin I LESS THAN 0.02 Imaging Chest x-ray completed 05/12 shows no acute cardiopulmonary findings on my review Caprini VTE Risk Assessment Caprini VTE Risk Assessment: No/Low Risk (score <= 1) Caprini Risk Assessment Model Point Value = 1 Point Value = 2 Point Value = 3 Point Value = 5 Age 41-60 Minor surgery BMI > 25 kg/m2 Swollen legs Varicose veins or History of unexplained or recurrent spontaneous Oral contraceptives or hormone replacement Sepsis (< 1 month) Serious lung disease, including pneumonia (< 1 month) Abnormal pulmonary function Acute myocardial infarction Congestive heart failure (< 1 month) History of inflammatory bowel disease Medical patient at bed rest Age 61-74 Arthroscopic surgery Major open surgery (> 45 min) Laparoscopic surgery (> 45 min) Malignancy Confined to bed (> 72 hours) Immobilizing plaster cast Central venous access Age >= 75 History of VTE Family history of VTE Factor V Leiden Prothrombin [id number] Lupus anticoagulant Anticardiolipin antibodies Elevated serum homocysteine Heparin-induced thrombocytopenia Other congenital or acquired thrombophilia Stroke (< 1 month) Elective arthroplasty Hip, pelvis, or leg fracture Acute spinal cord injury (< 1 month) Prophylaxis Regimen Total Risk Factor Score Risk Level Prophylaxis Regimen 0-1 Low Early ambulation 2 Moderate Order ONE of the following: *Sequential Compression Device (SCD) *Heparin 5000 units SQ BID 3-4 Higher Order ONE of the following medications: *Heparin 5000 units SQ TID *Enoxaparin/Lovenox 40 mg SQ daily (WT < 150 kg, CrCl > 30 mL/min) *Enoxaparin/Lovenox 30 mg SQ daily (WT < 150 kg, CrCl > 10-29 mL/min) *Enoxaparin/Lovenox 30 mg SQ BID (WT < 150 kg, CrCl > 30 mL/min) AND/OR *Sequential Compression Device (SCD) 5 or more Highest Order ONE of the following medications: *Heparin 5000 units SQ TID (Preferred with Epidurals) *Enoxaparin/Lovenox 40 mg SQ daily (WT < 150 kg, CrCl > 30 mL/min) *Enoxaparin/Lovenox 30 mg SQ daily (WT < 150 kg, CrCl > 10-29 mL/min) *Enoxaparin/Lovenox 30 mg SQ BID (WT < 150 kg, CrCl > 30 mL/min) AND *Sequential Compression Device (SCD) Assessment and Plan Problem List: (1) Chest pain, atypical ICD Code: R07.89 - Other chest pain Plan: With worrisome features. Patient will be observed in the chest pain unit for cardiac stress testing, check echocardiogram and control blood pressure Patient is on amlodipine which may worsen his edema and we will add an SHANNAN inhibitor. (2) HTN (hypertension) ICD Code: I10 - Essential (primary) hypertension Plan: Continue lisinopril Follow-up echo (3) HIV (human immunodeficiency virus infection) ICD Code: B20 - Human immunodeficiency virus [HIV] disease Plan: Continue antiretrovirals Tiny Hawley MD May 12, 2017 18:44
[2017-05-12] MEDS ORDERED: LISINOPRIL 20 MG TAB PO ONE (18:45)
[2017-05-12 19:13] LABS: CREATINE KINASE 64 U/L (39-308)
[2017-05-12] MEDS ORDERED: SODIUM CHLORIDE 0.9% FLUSH 10 ML FLUSH IV FLUSH SCH (21:00)
[2017-05-12] MEDS ORDERED: GABAPENTIN 100 MG CAP PO SCH (21:00)
--- NOTE | 2017-05-13 05:10 | EKG ---
Date Performed: 05/12/2017 Time Performed: 16:32:59 PTAGE: 37 years EKG: Sinus rhythm NORMAL ECG PREVIOUS TRACING : 05/12/2017 09.03 DOCTOR: Miguel Angel Rhodes Interpretating Date/Time 05/13/2017 05:05:08
[2017-05-13] MEDS ORDERED: NON-FORMULARY DRUG (Darunavir-Cobicistat (Prezcobix) 1 TAB) PO SCH (09:00)
[2017-05-13] MEDS ORDERED: LISINOPRIL 20 MG TAB PO SCH (09:00)
== END 2017-05-12 19:00 | disposition left against medical advice (07) ==
LOC: PHED 16:21 → PHEDA 17:54
PROVIDERS: ADMIT Hospitalist; ATTEND Hospitalist
DX: R07.89 Other chest pain (principal); I10 Essential (primary) hypertension; B20 Human immunodeficiency virus [HIV] disease; F12.90 Cannabis use, unspecified, uncomplicated; Z72.0 Tobacco use
CPT/HCPCS: 82550; 84443; 84484; 93005; 99285; G0378

== ENCOUNTER 2017-05-25 19:38 | Emergency (ER) | payer SELFPAY ==
[~2017-05-25] VITALS: Ht 180.3 cm; Wt 96.8 kg
[~2017-05-25 19:38] MED LIST changes: -NYST15T TOPICAL; -[UNRECOGNIZED DRUG - OTHER] PO
[2017-05-25 19:40] VITALS: BP 140/92; PULSE 117; RESP 18; TEMP 99.3; O2SAT 97
[2017-05-25] MEDS ORDERED: EMTR1TAB4 PO (19:57)
[2017-05-25] MEDS ORDERED: NITR1SUB3 SL (19:59)
[2017-05-25] MEDS ORDERED: SODIUM CHLOR 0.9% 1000 ML INJ 1,000 ML IV ONE ×2 (20:00→21:00)
[2017-05-25] MEDS ORDERED: SODIUM CHLORIDE 0.9% FLUSH 10 ML FLUSH IVF PRN (20:00)
[2017-05-25 20:10] VITALS: BP 133/72; PULSE 112; RESP 18; O2SAT 97
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
[2017-05-25 20:32] LABS: AUTOMATED NEUTROPHIL # 3.6 TH/MM3 (1.8-7.7); BASOPHIL # 0.1 TH/MM3 (0-0.2); EOSINOPHIL # 0.3 TH/MM3 (0-0.4); EOSINOPHIL % 4.2 % (0.0-4.0); HEMATOCRIT 38.2 % (39.0-51.0); HEMO FLAGS DIFF FINAL; LYMPH % 25.3 % (9.0-44.0); LYMPHOCYTE # 1.7 TH/MM3 (1.0-4.8); MEAN CELL VOLUME 90.7 FL (80.0-100.0); MEAN CORPUSCULAR HEMOGLOBIN 29.5 PG (27.0-34.0); MEAN CORPUSCULAR HGB CONC 32.6 % (32.0-36.0); MONO % 13.1 % (0.0-8.0); NEUT % 56.4 % (16.0-70.0); PLATELET COUNT 245 TH/MM3 (150-450); RED BLOOD COUNT 4.21 MIL/MM3 (4.50-5.90); RED CELL DISTRIBUTION WIDTH 12.8 % (11.6-17.2); WHITE BLOOD COUNT 6.6 TH/MM3 (4.0-11.0)
[2017-05-25 20:40] VITALS: BP 131/84; PULSE 104; RESP 18; TEMP 98.3; O2SAT 96
[2017-05-25 20:40] LABS: CHLORIDE 104 MEQ/L (98-107); POTASSIUM 3.1 MEQ/L (3.5-5.1); SODIUM (NA) 139 MEQ/L (136-145)
[2017-05-25 20:43] LABS: ANION GAP 8 MEQ/L (5-15); BLOOD UREA NITROGEN 19 MG/DL (7-18)
[2017-05-25 20:44] LABS: APTT (PATIENT) 22.6 SEC (24.3-30.1); PROTHROMBIN TIME - PATIENT 10.7 SEC (9.8-11.6)
[2017-05-25 20:46] LABS: GLOMERULAR FILTRATION RATE 69 ML/MIN (>89)
[2017-05-25 20:49] LABS: CREATINE KINASE 373 U/L (39-308)
[2017-05-25] MEDS ORDERED: POTASSIUM CHLORIDE 20 MEQ CONTROLLED RELEASE TAB PO ONE (21:00)
[2017-05-25 21:02] LABS: CKMB 1.1 NG/ML (0.5-3.6)
[2017-05-25] MEDS ORDERED: CEPH-460 PO (21:43)
[2017-05-25] MEDS ORDERED: CEPHALEXIN MONOHYDRATE 500 MG CAP PO ONE (21:45)
[2017-05-25 22:13] VITALS: BP 127/75
[2017-05-26] MEDS ORDERED: HYDR-3516 PO (13:37)
--- NOTE | 2017-05-26 21:29 | EKG ---
Date Performed: 05/25/2017 Time Performed: 20:17:29 PTAGE: 37 years EKG: SINUS TACHYCARDIA ABNORMAL RHYTHM ECG PREVIOUS TRACING : 05/12/2017 16.32 Compared to prior tracing no significant change DOCTOR: Duong Roberts Interpretating Date/Time 05/26/2017 21:27:55
== END 2017-05-25 22:15 | disposition home or self-care (01) ==
LOC: PHED 19:38
DX: S10.91XA Abrasion of unspecified part of neck, initial encounter (principal); R00.0 Tachycardia, unspecified; R07.89 Other chest pain; F17.200 Nicotine dependence, unspecified, uncomplicated; I10 Essential (primary) hypertension; Y04.8XXA Assault by other bodily force, initial encounter; Y92.511 Restaurant or cafe as the place of occurrence of the external cause; Z21 Asymptomatic human immunodeficiency virus [HIV] infection status
CPT/HCPCS: 80048; 80307; 82550; 82552; 84484; 85025; 85610; 85730; 93005; 96360; 96361; 99284; J7030

== ENCOUNTER 2017-05-26 11:48 | Emergency (ER) | payer SELFPAY ==
[~2017-05-26] VITALS: Ht 182.9 cm; Wt 95.0 kg
[~2017-05-26 11:48] MED LIST changes: +CEPH-460 PO; +EMTR1TAB4 PO; +NITR1SUB3 SL
[2017-05-26 11:54] VITALS: BP 142/70; PULSE 98; RESP 16; TEMP 98.7; O2SAT 99
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
[2017-05-26] MEDS ORDERED: KETOROLAC TROMETHAMINE 60 MG/2 ML (IM) VIAL IM ONE (12:45)
--- NOTE | 2017-05-26 12:58 | RADRPT ---
EXAM DATE/TIME: 05/26/2017 12:44 [facility] COMPARISON: CHEST SINGLE AP, May 12, 2017, 9:25. INDICATIONS : Rib pain after injuring at work MEDICAL HISTORY : Smoker SURGICAL HISTORY : None. ENCOUNTER: Initial ACUITY: 2 days PAIN SCORE: 8/10 LOCATION: Left anterior ribs FINDINGS: PA and lateral views of the chest demonstrate the lungs to be symmetrically aerated without evidence of mass, infiltrate or effusion. The cardiomediastinal contours are unremarkable. Osseous structure s are intact. CONCLUSION: Normal examination for a patient of this age. No significant change has occurred. Raffi Pino MD on May 26, 2017 at 12:56 Board Certified Radiologist. This report was verified electronically.
[2017-05-26] MEDS ORDERED: HYDR-3516 PO (13:37)
== END 2017-05-26 13:55 | disposition home or self-care (01) ==
LOC: PHEFT 11:48
DX: S20.212A Contusion of left front wall of thorax, initial encounter (principal); Y09 Assault by unspecified means; I10 Essential (primary) hypertension; F17.200 Nicotine dependence, unspecified, uncomplicated
CPT/HCPCS: 71020; 99283

== ENCOUNTER 2017-12-01 09:34 | Emergency (ER) | payer SELFPAY ==
[~2017-12-01] VITALS: Ht 182.9 cm; Wt 99.9 kg
[~2017-12-01 09:34] MED LIST changes: -CEPH-460 PO; +HYDR-3516 PO
[2017-12-01 09:41] VITALS: BP 126/73; PULSE 91; RESP 18; TEMP 97.6; O2SAT 97
[2017-12-01] MEDS ORDERED: PRED20 PO (10:09)
[2017-12-01] MEDS ORDERED: IBUP1TAB7 PO (10:09)
--- NOTE | 2017-12-01 10:10 | PD ---
HPI Chief Complaint: Musculoskeletal Complaint Time Seen by Provider: 09:57 Travel History International Travel<30 days: No Contact w/Intl Traveler<30days: No Traveled to known affect area: No History of Present Illness HPI 37-year-old male presents to the emergency department for evaluation of bilateral hand pain and swelling. Patient states he has had bilateral hand pain and swelling for several months. He was diagnosed with tendinitis and carpal tunnel and placed on gabapentin by his primary care physician. 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 He states is exacerbated his pain and he has had pain for the past 2 days. Her pain is 10/10, aching to bilateral hands. He states for the wrist and extends to the entire hand bilaterally. Patient denies any fevers or chills. Patient states he is taking his gabapentin, but it is not relieving his pain. He denies any history of IV drug use. He has history of hypertension and HIV. Exacerbating factor is movement, alleviating factors keeping the hand still. Mild severity. PFSH Past Medical History Hx Anticoagulant Therapy: No Cardiovascular Problems: Yes (HTN. angina) Diabetes: No Diminished Hearing: No Hypertension: Yes Immune Disorder: Yes (HIV+) ?: Not Past Surgical History Other Surgery: Yes (INGUINAL HERNIA REPAIR) Social History Alcohol Use: Yes (DRINKS ON ) Tobacco Use: Yes (1/2PPD) Substance Use: No Allergies-Medications (Allergen,Severity, Reaction): Coded Allergies: azithromycin (Unverified Allergy, Mild, DOES ALL KINDS OF THINGS TO ME, ) propoxyphene (Unverified Allergy, Mild, MAKES ME SICK, 12/01/17) tramadol (Verified Allergy, Unknown, Hives, 12/01/17) Reaction 3 years ago. Reported Meds & Prescriptions Reported Meds & Active Scripts Active Gabapentin 100 Mg Cap 100 Mg PO BID Reported Nitroglycerin SL (Nitroglycerin) 0.4 Mg Subl 0.4 Mg SL DIRECTED PRN ONE TABLET UNDER THE TONGUE NEEDED FOR CHEST PAIN, MAY REPEAT EVERY FIVE MINUTES FOR A TOTAL OF 3 DOSES OR CALL 911 IF NO RELIEF Descovy (Emtricitabine-Tenofovir Alafenamide) 200-25 mg Tab 1 Tab PO DAILY Prezcobix (Darunavir-Cobicistat) 800-150 Mg Tab 1 Tab PO DAILY Hydrochlorothiazide 25 Mg Tab 25 Mg PO DAILY Amlodipine (Amlodipine Besylate) 10 Mg Tab 10 Mg PO DAILY Review of Systems Except as stated in HPI: all other systems reviewed are Neg Physical Exam Narrative GENERAL: Well-nourished, well-developed male patient, afebrile. SKIN: Focused skin assessment warm/dry. Patient has insect bites to the bilateral forearms, but no evidence of cellulitis or infection. HEAD: Normocephalic. Atraumatic. EYES: No scleral icterus. No injection or drainage. NECK: Supple, trachea midline. No JVD or lymphadenopathy. CARDIOVASCULAR: Regular rate and rhythm without murmurs, gallops, or rubs. RESPIRATORY: Breath sounds equal bilaterally. No accessory muscle use. Lung sounds are clear to auscultation. GASTROINTESTINAL: Abdomen soft, non-tender, nondistended. MUSCULOSKELETAL: No cyanosis, or edema. Patient has full flexion-extension of all digits of bilateral hands. No erythema or swelling, no warmth of bilateral hands. No evidence of cellulitis or infection. BACK: Nontender without obvious deformity. No CVA tenderness. Data Data Last Documented VS Vital Signs Date Time Temp Pulse Resp B/P (MAP) Pulse Ox O2 Delivery O2 Flow Rate FiO2 12/01/17 09:41 97.6 91 18 126/73 (90) 97 Orders Orders Ibuprofen (Motrin) (12/01/17 10:15) Prednisone (Deltasone) (12/01/17 10:15) [facility] Medical Decision Making Medical Screen Exam Complete: Yes Emergency Medical Condition: Yes Medical Record Reviewed: Yes Differential Diagnosis Tendinitis versus carpal tunnel versus cellulitis Narrative Course 37-year-old male presents to the emergency department for evaluation of bilateral hand pain and swelling that has been ongoing for several months, but worse in the past 2 days after he turned wrenches. No traumatic injury. No evidence of infection on exam. Patient is instructed to continue his gabapentin. He is given prednisone 60 mg p.o. and ibuprofen 800 mg p.o. in the emergency department. He will be discharged with prescriptions for prednisone and ibuprofen. He is instructed to follow-up with his primary care physician. The patient was discharged in stable condition with instructions, including return instructions and follow up instructions. Diagnosis Primary Impression: Tendinitis of both hands Referrals: Primary Care Physician call for appointment Patient Instructions: General Instructions, Tendinitis (ED) Departure Forms: Tests/Procedures, Work Release Enter return to work date: Dec 03, 2017 Additional Instructions: Take prednisone as directed. Start this tomorrow. Take ibuprofen as directed as needed with food for pain. Follow-up with a primary care physician. Return to the emergency department for any acute worsening of symptoms. Med/Other Pt SpecificInfo: Prescription(s) given Scripts Ibuprofen (Ibuprofen) 800 Mg Tab 800 MG PO TID Y for PAIN SCALE 1 TO 10, #21 TAB 0 Refills Prov: Jillian Ragland 12/01/17 Prednisone (Prednisone) 20 Mg Tab 40 MG PO DAILY, #10 TAB 0 Refills Take 40 mg (2 tablets) daily for 5 days Prov: Jillian Ragland 12/01/17 Disposition: 01 DISCHARGE HOME Condition: Stable Jillian Ragland Dec 01, 2017 10:10
[2017-12-01] MEDS ORDERED: IBUPROFEN 800 MG TAB PO ONE (10:15)
[2017-12-01] MEDS ORDERED: predniSONE 20 MG TAB PO ONE (10:15)
== END 2017-12-01 10:24 | disposition home or self-care (01) ==
LOC: PHEFT 09:34
DX: M77.9 Enthesopathy, unspecified (principal); I10 Essential (primary) hypertension; B20 Human immunodeficiency virus [HIV] disease; F17.200 Nicotine dependence, unspecified, uncomplicated
CPT/HCPCS: 99283; J7512

== ENCOUNTER 2017-12-11 17:08 | Emergency (ER) | payer SELFPAY | END 2017-12-11 19:11 | disposition home or self-care (01) | LOC: PHEFT 17:08 | DX: S61.431A Puncture wound without foreign body of right hand, initial encounter (principal); W26.8XXA Contact with other sharp object(s), not elsewhere classified, initial encounter; I10 Essential (primary) hypertension; Z21 Asymptomatic human immunodeficiency virus [HIV] infection status; F17.200 Nicotine dependence, unspecified, uncomplicated | CPT/HCPCS: 73120; 99283 ==

== ENCOUNTER 2017-12-17 12:16 | Emergency (ER) | payer SELFPAY ==
[~2017-12-17 12:16] MED LIST changes: +BACT800T5 PO; +CIPR-9 PO; -HYDR-3516 PO; -NITR1SUB3 SL
[2017-12-17 12:21] VITALS: BP 141/69; PULSE 123; RESP 20; TEMP 98.1; O2SAT 98
[2017-12-17] MEDS ORDERED: ACETAMINOPHEN 325 MG TAB PO ONE (13:00)
[2017-12-17] MEDS ORDERED: SODIUM CHLOR 0.9% 1000 ML INJ 1,000 ML IV ONE (13:00)
[2017-12-17] MEDS ORDERED: SODIUM CHLORIDE 0.9% FLUSH 10 ML FLUSH IV FLUSH PRN (13:00)
[2017-12-17 13:26] VITALS: O2SAT 100
[2017-12-17 13:29] LABS: CHLORIDE 99 MEQ/L (98-107); SODIUM (NA) 136 MEQ/L (136-145)
[2017-12-17 13:32] LABS: CALCIUM 9.2 MG/DL (8.5-10.1)
[2017-12-17 13:33] LABS: ALBUMIN 3.3 GM/DL (3.4-5.0); BICARBONATE 30.2 MEQ/L (21.0-32.0); BLOOD UREA NITROGEN 11 MG/DL (7-18); GLUCOSE,RANDOM 79 MG/DL (74-106)
[2017-12-17 13:36] LABS: ALT (GPT) 26 U/L (12-78); AST (GOT) 11 U/L (15-37); GLOMERULAR FILTRATION RATE 85 ML/MIN (>89)
[2017-12-17 13:38] LABS: TOTAL BILIRUBIN ADULT 0.2 MG/DL (0.2-1.0); TOTAL PROTEIN 8.4 GM/DL (6.4-8.2)
[2017-12-17 13:39] LABS: ALKALINE PHOSPHATASE 92 U/L (45-117)
--- NOTE | 2017-12-17 13:46 | PD ---
HPI Chief Complaint: Skin Problem Time Seen by Provider: 12:40 Travel History International Travel<30 days: No Contact w/Intl Traveler<30days: No Traveled to known affect area: No History of Present Illness HPI 37-year-old male with history of HIV, antiretroviral therapy for the last month , here for evaluation of left forearm infection. He states that he was at [facility] 2 days ago where he had the wound incised and drained and packed. He reports that he remove the packing today, however he still has significant swelling and pain to the forearm. He has had subjective fevers and chills. He has been on Cipro and Bactrim. Pain is moderate to severe, constant , worse with movements. 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 PFSH Past Medical History Hx Anticoagulant Therapy: No Cardiovascular Problems: Yes (HTN. angina) Diabetes: No Diminished Hearing: No Hypertension: Yes Immune Disorder: Yes (HIV+) ?: Not Past Surgical History Other Surgery: Yes (INGUINAL HERNIA REPAIR) Social History Alcohol Use: Yes (DRINKS ON ) Tobacco Use: Yes (1/2PPD) Substance Use: No Allergies-Medications (Allergen,Severity, Reaction): Coded Allergies: azithromycin (Verified Allergy, Mild, DOES ALL KINDS OF THINGS TO ME, 12/17) propoxyphene (Verified Allergy, Mild, MAKES ME SICK, 12/17/17) tramadol (Verified Allergy, Unknown, Hives, 12/17/17) Reaction 3 years ago. Reported Meds & Prescriptions Reported Meds & Active Scripts Active Cipro (Ciprofloxacin HCl) 500 Mg Tab 500 Mg PO BID 10 Days Bactrim DS (Sulfamethoxazole-Trimethoprim) 800-160 Mg Tab 1 Tab PO BID Gabapentin 100 Mg Cap 100 Mg PO BID Reported Descovy (Emtricitabine-Tenofovir Alafenamide) 200-25 mg Tab 1 Tab PO DAILY Prezcobix (Darunavir-Cobicistat) 800-150 Mg Tab 1 Tab PO DAILY Hydrochlorothiazide 25 Mg Tab 25 Mg PO DAILY Amlodipine (Amlodipine Besylate) 10 Mg Tab 10 Mg PO DAILY Review of Systems Except as stated in HPI: all other systems reviewed are Neg Physical Exam Narrative GENERAL: Well-developed, well-nourished, comfortable, no apparent distress. SKIN: Focused skin assessment warm/dry. Multiple small/circular scars on bilateral upper and lower extremities. Left proximal/posterior forearm with moderate sized area of induration with central incision with small amount of purulent drainage. There is no crepitus. No red streaks. This area was evaluated using a bedside linear ultrasound and shows cobblestoning which is suggestive of cellulitis, no drainable fluid collections. No splinter hemorrhages, Janeway lesions, or Osler nodes. HEAD: Atraumatic. Normocephalic. EYES: Pupils equal and round. No scleral icterus. No injection or drainage. ENT: Mucous membranes pink and moist. NECK: Trachea midline. No JVD. CARDIOVASCULAR: Regular rate and rhythm. No murmur appreciated. Distal pulses brisk and equal bilaterally. RESPIRATORY: No accessory muscle use. Clear to auscultation. Breath sounds equal bilaterally. GASTROINTESTINAL: Abdomen soft, non-tender, nondistended. MUSCULOSKELETAL: Skin exam as above. NEUROLOGICAL: Awake and alert. No obvious cranial nerve deficits. Motor grossly within normal limits. Normal speech. PSYCHIATRIC: Appropriate mood and affect; insight and judgment normal. Data Data Last Documented VS Vital Signs Date Time Temp Pulse Resp B/P (MAP) Pulse Ox O2 Delivery O2 Flow Rate FiO2 12/17/17 12:21 98.1 123 20 141/69 (93) 98 Orders Orders Complete Blood Count With Diff (12/17/17 12:46) Comprehensive Metabolic Panel (12/17/17 12:46) Prothrombin Time / Inr (Pt) (12/17/17 12:46) Act Partial Throm Time (Ptt) (12/17/17 12:46) Iv Access Insert/Monitor (12/17/17 12:46) Ecg Monitoring (12/17/17 12:46) Oximetry (12/17/17 12:46) Sodium Chloride 0.9% Flush (Ns Flush) (12/17/17 13:00) Acetaminophen (Tylenol) (12/17/17 13:00) Sodium Chlor 0.9% 1000 Ml Inj (Ns 1000 M (12/17/17 13:00) Pharmacy Information ([facility] (12/17/17 14:00) [place] Inj ([facility] Inj) (12/17/17 13:56) Labs Laboratory Tests Test 12/17/17 13:03 White Blood Count 8.1 TH/MM3 Red Blood Count 4.75 MIL/MM3 Hemoglobin 14.1 GM/DL Hematocrit 41.3 % Mean Corpuscular Volume 86.9 FL Mean Corpuscular Hemoglobin 29.6 PG Mean Corpuscular Hemoglobin Concent 34.0 % Red Cell Distribution Width 12.6 % Platelet Count 394 TH/MM3 Mean Platelet Volume 6.9 FL Neutrophils (%) (Auto) 59.4 % Lymphocytes (%) (Auto) 28.2 % Monocytes (%) (Auto) 10.1 % Eosinophils (%) (Auto) 1.9 % Basophils (%) (Auto) 0.4 % Neutrophils # (Auto) 4.8 TH/MM3 Lymphocytes # (Auto) 2.3 TH/MM3 Monocytes # (Auto) 0.8 TH/MM3 Eosinophils # (Auto) 0.2 TH/MM3 Basophils # (Auto) 0.0 TH/MM3 CBC Comment DIFF FINAL Differential Comment Blood Urea Nitrogen 11 MG/DL Creatinine 1.00 MG/DL Random Glucose 79 MG/DL Total Protein 8.4 GM/DL Albumin 3.3 GM/DL Calcium Level 9.2 MG/DL Alkaline Phosphatase 92 U/L Aspartate Amino Transf (AST/SGOT) 11 U/L Alanine Aminotransferase (ALT/SGPT) 26 U/L Total Bilirubin 0.2 MG/DL Sodium Level 136 MEQ/L Potassium Level 3.6 MEQ/L Chloride Level 99 MEQ/L Carbon Dioxide Level 30.2 MEQ/L Anion Gap 7 MEQ/L Estimat Glomerular Filtration Rate 85 ML/MIN [facility] Medical Decision Making Medical Screen Exam Complete: Yes Emergency Medical Condition: Yes Medical Record Reviewed: Yes Differential Diagnosis Left forearm cellulitis Narrative Course Bedside linear ultrasound was used to evaluate the area of induration to the patient's left forearm and shows cobblestoning which is suggestive of cellulitis. There are no drainable fluid collections. Initial vital signs show heart rate 123 which improved to 98 after a liter of normal saline IV, blood pressure 141/69, pulse ox 90% on room air, oral temp 98.1F. CBC: WBC 8.1, hemoglobin 14.1, hematocrit 41.3, platelets 394, neutrophils 60%. CMP is essentially unremarkable. Patient will be given Dilantin in the emergency department and discharged home with outpatient follow-up in 3 days. Warm compresses advised. He was advised on when to return to the emergency department. He verbalizes understanding and agreement with plan. Procedures Procedure Narrative Bedside ultrasound: Using a linear ultrasound probe, a bedside ultrasound was performed by me of the patient's left forearm which shows cobblestoning. This is suggestive of cellulitis. There are no drainable fluid collections. Diagnosis Primary Impression: Cellulitis of left forearm Referrals: [facility] 3 days Primary Care Physician 3 days Additional Instructions: Follow-up with a primary care physician this week. Return to the emergency department for worsening symptoms or any other concerns. Disposition: 01 DISCHARGE HOME Condition: Stable Raymundo Rico MD December 17, 2017 13:46
[2017-12-17] MEDS ORDERED: DALBAVANCIN INJ 1,500 MG in DEXTROSE 5% IN WATE 500 ML INJ 500 ML IV STA ×2 (13:56)
[2017-12-17] MEDS ORDERED: PHARMACY INFORMATION XX ONE (14:00)
[2017-12-17 14:15] LABS: AUTOMATED NEUTROPHIL # 4.8 TH/MM3 (1.8-7.7); BASOPHIL % 0.4 % (0.0-2.0); EOSINOPHIL # 0.2 TH/MM3 (0-0.4); EOSINOPHIL % 1.9 % (0.0-4.0); HEMATOCRIT 41.3 % (39.0-51.0); HEMOGLOBIN 14.1 GM/DL (13.0-17.0); LYMPH % 28.2 % (9.0-44.0); LYMPHOCYTE # 2.3 TH/MM3 (1.0-4.8); MEAN CELL VOLUME 86.9 FL (80.0-100.0); MEAN CORPUSCULAR HEMOGLOBIN 29.6 PG (27.0-34.0); MEAN PLATELET VOLUME 6.9 FL (7.0-11.0); MONO % 10.1 % (0.0-8.0); MONOCYTE # 0.8 TH/MM3 (0-0.9); NEUT % 59.4 % (16.0-70.0); PLATELET COUNT 394 TH/MM3 (150-450); RED BLOOD COUNT 4.75 MIL/MM3 (4.50-5.90); RED CELL DISTRIBUTION WIDTH 12.6 % (11.6-17.2); WHITE BLOOD COUNT 8.1 TH/MM3 (4.0-11.0)
== END 2017-12-17 16:35 | disposition home or self-care (01) ==
LOC: PHED 12:16
DX: L03.114 Cellulitis of left upper limb (principal); I10 Essential (primary) hypertension; F17.200 Nicotine dependence, unspecified, uncomplicated; Z21 Asymptomatic human immunodeficiency virus [HIV] infection status
CPT/HCPCS: 80053; 85025; 85610; 85730; 96361; 96365; 99284; J0875; J7030; J7060